=== PATIENT | male | born 1965 | race African-American/Black ===

== ENCOUNTER 2024-09-04 10:04 | Inpatient (IN) | payer OTHER ==
[2024-09-04] MEDS ORDERED: ACETAMINOPHEN INJECTION 100 ML ONE ×2 (11:48→18:17)
[2024-09-04] MEDS: ACETAMINOPHEN 1000 MG/100 ML BAG IVPB ONE (12:11)
[2024-09-04 12:25] LABS: HEMATOCRIT 45.6 % (35.4-49); HEMOGLOBIN 14.9 GM/dL (11.7-16.9); MCH 30.1 pg (25.7-33.7); MCHC 32.7 g/dl (32.0-35.9); MEAN CELL VOLUME 91.9 fl (80-96); MEAN PLT VOLUME 8.4 fl (7.5-11.1); PLATELET COUNT 363 10^3/uL (134-434); RBC 4.97 M/mm3 (4.00-5.60); RDW 14.4 % (11.9-15.9)
[2024-09-04 12:41] LABS: ACTIVATED PTT 36.2 SECONDS (25.2-36.5); INR 1.13 (0.83-1.09); PROTHROMBIN TIME (PATIENT) 12.9 SEC (9.7-13.0)
[2024-09-04 12:53] LABS: ANISOCYTOSIS 0; MACROCYTOSIS 0
[2024-09-04 12:56] LABS: EPI CELLS 31 /uL (0-25.1); HYALINE CASTS 2 /uL (0-3.1); PH,URINE 5.5 (5.0-8.0); URINE APPEARANCE CLEAR; URINE BACTERIA 20 /uL (0-1359); URINE BILIRUBIN NEGATIVE (NEGATIVE); URINE COLOR YELLOW; URINE GLUCOSE (UA) NEGATIVE (NEGATIVE); URINE KETONE NEGATIVE (NEGATIVE); URINE LEUK ESTERASE 2+ (NEGATIVE); URINE NITRITE NEGATIVE (NEGATIVE); URINE PROTEIN 1+ (NEGATIVE); URINE RBC 150 /uL (0-23.9); URINE UROBILINOGEN 0.2 mg/dL (0.2-1.0); URINE WBC 386 /uL (0-25.8)
[2024-09-04 13:01] LABS: POTASSIUM 4.9 mmol/L (3.5-5.1)
[2024-09-04 13:02] LABS: ALBUMIN 3.5 g/dl (3.4-5.0); CALCIUM 9.4 mg/dL (8.5-10.1)
[2024-09-04 13:03] LABS: BLOOD UREA NITROGEN 16.6 mg/dL (7-18)
[2024-09-04 13:06] LABS: CREATININE 1.8 mg/dL (0.55-1.3)
[2024-09-04 13:08] LABS: BILIRUBIN,TOTAL 0.6 mg/dL (0.2-1); TOT PROT 7.8 g/dl (6.4-8.2)
[2024-09-04 13:46] LABS: VENOUS O2 SATURATION 74.3 % (70-80); VENOUS PCO2 30.7 mmHg (38-52); VENOUS PH 7.448 (7.310-7.410)
[2024-09-04] MEDS ORDERED: PIPERACILLIN/TAZOB 4.5 GM 4.5 GM/100 ML BAG IVPB ONE (14:45)
[2024-09-04] MEDS ORDERED: VANCOMYCIN 1 GM PREMIX (F) 1 GM/200 ML BAG ONE (14:45)
[2024-09-04] MEDS: SODIUM CHLORIDE 0.9% 500 ML INFUS.BAG IV ONE ×2 (14:54→16:02)
[2024-09-04] MEDS: LIDOCAINE 4% PATCH TP ONE (14:54)
[2024-09-04] MEDS: VANCOMYCIN 1 GM PREMIX (F) 1 GM/200 ML BAG IVPB ONE (14:54)
[2024-09-04] MEDS ORDERED: morphine SULFATE 4 MG/ML VIAL ONE (15:16)
[2024-09-04] MEDS: morphine CARPU-JECT 4 MG/1 ML DISP.SYRIN IVPUSH ONE (15:25)
[2024-09-04] MEDS: PIPERACILLIN/TAZOB 4.5 GM 4.5 GM in DEXTROSE 5%-WATER 100 ML IVPB ONE (16:02)
[2024-09-04] MEDS ORDERED: HYDROmorphone HCL CARPU-JECT 2 MG/1 ML DISP.SYRIN IVPUSH PRN (17:38)
[2024-09-04] MEDS: ACETAMINOPHEN 1000 MG/100 ML BAG IVPB PRN (18:24)
[2024-09-04] MEDS: LACTATED RINGERS SOLUTION 1,000 ML/1,000 ML INFUS.BAG IV SCH (19:45)
[2024-09-04] MEDS: LIDOCAINE PATCH REMOVAL MC ONE (22:03)
[2024-09-04] MEDS ORDERED: CEFTRIAXONE 1 G/50 ML PREMIX 50 ML IVPB ONE (22:06)
[2024-09-04] MEDS: CEFTRIAXONE 1 G/50 ML PREMIX 50 ML IVPB SCH (22:49)
[2024-09-05] MEDS: HYDROmorphone HCL CARPU-JECT 2 MG/1 ML DISP.SYRIN IVPB PRN (01:33)
[2024-09-05 06:35] VITALS: BMI 30.9
[2024-09-05] MEDS: FINASTERIDE 5 MG TABLET (FP) PO SCH (10:37)
[2024-09-05] MEDS: TAMSULOSIN HCL 0.4 MG CAP PO SCH (10:37)
[2024-09-05 10:51] LABS: HEMATOCRIT 41.3 % (35.4-49); MCH 29.4 pg (25.7-33.7); MCHC 31.6 g/dl (32.0-35.9); MEAN CELL VOLUME 92.9 fl (80-96); MEAN PLT VOLUME 8.8 fl (7.5-11.1); PLATELET COUNT 306 10^3/uL (134-434); RBC 4.44 M/mm3 (4.00-5.60); RDW 13.7 % (11.9-15.9); WHITE BLOOD COUNT 25.3 K/mm3 (4.0-10.0)
[2024-09-05 11:09] LABS: POTASSIUM 4.3 mmol/L (3.5-5.1)
[2024-09-05 11:24] LABS: ALBUMIN 2.9 g/dl (3.4-5.0); CALCIUM 8.6 mg/dL (8.5-10.1); MAGNESIUM 2.2 mg/dL (1.8-2.4)
[2024-09-05 11:26] LABS: PHOSPHOROUS 2.5 mg/dL (2.5-4.9)
[2024-09-05 11:27] LABS: CREATININE 1.7 mg/dL (0.55-1.3)
[2024-09-05 11:28] LABS: BILIRUBIN,TOTAL 0.5 mg/dL (0.2-1); TOT PROT 6.4 g/dl (6.4-8.2)
[2024-09-05 11:59] LABS: ANISOCYTOSIS 0; MACROCYTOSIS 0
[2024-09-05] MEDS: PIPERACILLIN/TAZOB 3.375 GM 3.375 GM in DEXTROSE 5%-WATER - 50 ML IVPB SCH (13:51)
[2024-09-05] MEDS: LACTATED RINGERS SOLUTION 1,000 ML/1,000 ML INFUS.BAG IV SCH (17:54)
[2024-09-06 09:53] LABS: HEMATOCRIT 39.8 % (35.4-49); HEMOGLOBIN 13.1 GM/dL (11.7-16.9); MCHC 32.9 g/dl (32.0-35.9); MEAN CELL VOLUME 91.1 fl (80-96); PLATELET COUNT 316 10^3/uL (134-434); RBC 4.37 M/mm3 (4.00-5.60); WHITE BLOOD COUNT 23.3 K/mm3 (4.0-10.0)
[2024-09-06 10:32] LABS: POTASSIUM 4.2 mmol/L (3.5-5.1)
[2024-09-06 10:47] LABS: BLOOD UREA NITROGEN 15.7 mg/dL (7-18)
[2024-09-06 10:48] LABS: ALBUMIN 2.8 g/dl (3.4-5.0); CALCIUM 9.1 mg/dL (8.5-10.1); MAGNESIUM 2.1 mg/dL (1.8-2.4)
[2024-09-06 10:51] LABS: CREATININE 1.8 mg/dL (0.55-1.3)
[2024-09-06 10:52] LABS: BILIRUBIN,TOTAL 0.3 mg/dL (0.2-1)
[2024-09-06 10:53] LABS: TOT PROT 6.4 g/dl (6.4-8.2)
[2024-09-06 11:11] LABS: ANISOCYTOSIS 1+; MACROCYTOSIS 1+
[2024-09-06] MEDS: SODIUM CHLORIDE 1,000 ML IV SCH (20:21)
[2024-09-06 20:31] LABS: HIV INTERPRETATION NEGATIVE (NEGATIVE)
[2024-09-07 08:57] LABS: HEMATOCRIT 38.7 % (35.4-49); MCH 30.7 pg (25.7-33.7); MCHC 33.7 g/dl (32.0-35.9); MEAN CELL VOLUME 91.3 fl (80-96); MEAN PLT VOLUME 8.7 fl (7.5-11.1); PLATELET COUNT 350 10^3/uL (134-434); RBC 4.24 M/mm3 (4.00-5.60)
[2024-09-07 09:11] LABS: POTASSIUM 4.5 mmol/L (3.5-5.1)
[2024-09-07 09:17] LABS: CALCIUM 9.2 mg/dL (8.5-10.1)
[2024-09-07 09:18] LABS: ALBUMIN 2.9 g/dl (3.4-5.0); BLOOD UREA NITROGEN 14.7 mg/dL (7-18); MAGNESIUM 2.3 mg/dL (1.8-2.4)
[2024-09-07 09:20] LABS: CREATININE 1.8 mg/dL (0.55-1.3)
[2024-09-07 09:22] LABS: BILIRUBIN,TOTAL 0.3 mg/dL (0.2-1); TOT PROT 6.7 g/dl (6.4-8.2)
[2024-09-07 09:56] LABS: ANISOCYTOSIS 0; MACROCYTOSIS 0
[2024-09-07] MEDS: PIPERACILLIN/TAZOB 3.375 GM 50 ML IVPB SCH (11:08)
[2024-09-08 09:19] LABS: MCH 30.9 pg (25.7-33.7); MCHC 34.3 g/dl (32.0-35.9); MEAN CELL VOLUME 90.2 fl (80-96); MEAN PLT VOLUME 7.6 fl (7.5-11.1); PLATELET COUNT 433 10^3/uL (134-434); RBC 4.54 M/mm3 (4.00-5.60); RDW 14.3 % (11.9-15.9); WHITE BLOOD COUNT 9.5 K/mm3 (4.0-10.0)
[2024-09-08 09:54] LABS: POTASSIUM 4.3 mmol/L (3.5-5.1)
[2024-09-08 10:39] LABS: CALCIUM 9.5 mg/dL (8.5-10.1)
[2024-09-08 10:41] LABS: ALBUMIN 3.2 g/dl (3.4-5.0); ANISOCYTOSIS 0; BLOOD UREA NITROGEN 20.3 mg/dL (7-18); MACROCYTOSIS 0; MAGNESIUM 2.4 mg/dL (1.8-2.4)
[2024-09-08 10:44] LABS: BILIRUBIN,TOTAL 0.3 mg/dL (0.2-1); CREATININE 1.8 mg/dL (0.55-1.3); TOT PROT 7.1 g/dl (6.4-8.2)
[2024-09-09 08:08] LABS: HEMATOCRIT 43.3 % (35.4-49); HEMOGLOBIN 14.8 GM/dL (11.7-16.9); MCH 30.9 pg (25.7-33.7); MCHC 34.1 g/dl (32.0-35.9); MEAN CELL VOLUME 90.6 fl (80-96); MEAN PLT VOLUME 8.3 fl (7.5-11.1); PLATELET COUNT 427 10^3/uL (134-434); RBC 4.78 M/mm3 (4.00-5.60); RDW 14.2 % (11.9-15.9); WHITE BLOOD COUNT 8.9 K/mm3 (4.0-10.0)
[2024-09-09 08:44] LABS: POTASSIUM 4.7 mmol/L (3.5-5.1)
[2024-09-09 08:56] LABS: ALBUMIN 3.4 g/dl (3.4-5.0); CALCIUM 9.4 mg/dL (8.5-10.1)
[2024-09-09 08:57] LABS: BLOOD UREA NITROGEN 21.1 mg/dL (7-18); MAGNESIUM 2.4 mg/dL (1.8-2.4)
[2024-09-09 09:00] LABS: CREATININE 1.8 mg/dL (0.55-1.3)
[2024-09-09 09:01] LABS: BILIRUBIN,TOTAL 0.5 mg/dL (0.2-1); TOT PROT 7.6 g/dl (6.4-8.2)
[2024-09-09 09:42] LABS: ANISOCYTOSIS 0; MACROCYTOSIS 0
[2024-09-09] MEDS: HEPARIN NA (PORCINE) 5,000 UNITS/ML 1ML VIAL SQ SCH (21:16)
[2024-09-09 22:08] LABS: FIBROSIS SCORE. 0.02 (0.00-0.21); HCV ALPHA 2 MACRO CHART 92 mg/dL (110-276); NECRO.INFLAM ACT.SCORE 0.19 (0.00-0.17); NECROINFLAM. ACTIVITY GRADE A0-A1 (.)
[2024-09-10 07:47] LABS: HEMATOCRIT 41.2 % (35.4-49); HEMOGLOBIN 13.8 GM/dL (11.7-16.9); MCH 30.4 pg (25.7-33.7); MCHC 33.4 g/dl (32.0-35.9); MEAN CELL VOLUME 91.1 fl (80-96); MEAN PLT VOLUME 7.7 fl (7.5-11.1); PLATELET COUNT 449 10^3/uL (134-434); RBC 4.53 M/mm3 (4.00-5.60); WHITE BLOOD COUNT 6.7 K/mm3 (4.0-10.0)
[2024-09-10 08:08] LABS: POTASSIUM 4.6 mmol/L (3.5-5.1)
[2024-09-10 08:11] VITALS: RESP 18
[2024-09-10 08:11] LABS: ALBUMIN 3.2 g/dl (3.4-5.0); CALCIUM 9.6 mg/dL (8.5-10.1)
[2024-09-10 08:12] LABS: BLOOD UREA NITROGEN 19.9 mg/dL (7-18); MAGNESIUM 2.4 mg/dL (1.8-2.4)
[2024-09-10 08:15] LABS: CREATININE 1.8 mg/dL (0.55-1.3)
[2024-09-10 08:16] LABS: BILIRUBIN,TOTAL 0.4 mg/dL (0.2-1); TOT PROT 7.1 g/dl (6.4-8.2)
[2024-09-10 08:50] LABS: ANISOCYTOSIS 0; HELMET CELLS 0; HOWELL-JOLLY BODIES 0; MACROCYTOSIS 0; OVALOCYTE 0; ROULEAU 0; SICKELED CELLS 0; TARGET CELLS 0; TEAR DROP CELLS 0; TOXIC GRANULATION 0
[2024-09-10 14:51] VITALS: BP 137/85; PULSE 74; TEMP 98.1
== END 2024-09-10 16:29 | disposition home or self-care (01) | DRG 871 ==
LOC: JER 10:04 → JERBED 16:51 → J7W 09-05 00:14
PROVIDERS: ADMIT Internal Medicine
DX: A41.89 Other specified sepsis (principal); R65.21 Severe sepsis with septic shock; N17.9 Acute kidney failure, unspecified; N13.8 Other obstructive and reflux uropathy; N45.1 Epididymitis; N40.1 Benign prostatic hyperplasia with lower urinary tract symptoms; R31.9 Hematuria, unspecified; R80.9 Proteinuria, unspecified; N50.819 Testicular pain, unspecified; N18.9 Chronic kidney disease, unspecified
CPT/HCPCS: 36415; 71045-TC-FY; 74176-TC; 76775-TC; 76856-TC; 76870-TC; 80053; 81003; 82172; 82803; 82977; 83010; 83516; 83605; 83735; 83883; 84100; 84460; 85025; 85610; 85730; 86038; 86160; 86225; 86850; 86900; 86901; 87040; 87086; 87389; 87491; 87536; 87591; 87661; 93005; 93010; 97116-GP; 97162-GP; 99291; J0131; J1644